=== PATIENT | male | born 1990 | race Caucasian/White ===

== ENCOUNTER 2019-01-08 14:13 | Emergency (ER) | payer OTHER, BC ==
--- NOTE | 2019-01-08 16:30 | ED Physician Documentation ---
PD HPI UPPER EXT INJURY - Stated complaint Stated Complaint: R THUMB LAC - Chief complaint Chief Complaint: Laceration - History obtained from History obtained from: Patient - History of Present Illness Location: Right, Finger (tip of thumb lacerated with table saw.) Type of injury: Laceration Where injury occurred: Work Timing - onset: Today Timing - details: Abrupt onset, Still present (bleeding if not having direct pressure.) Worsened by: Moving, Palpating Associated symptoms: No: Weakness, Numbness Review of Systems Neurologic: reports: Near syncope (he says he did get lightheaded after the injury, as he does not like the sight of blood. He does not feel there was a significant amount of blood loss.). denies: Focal weakness PD PAST MEDICAL HISTORY - Past Medical History Past Medical History: No - Allergies Allergies/Adverse Reactions: Allergies Allergy/AdvReac Type Severity Reaction Status Date / Time No Known Drug Allergies Allergy Verified 01/08/19 14:21 PD ED PE NORMAL - Vitals Vital signs reviewed: Yes - General General: Alert and oriented X 3, No acute distress, Well developed/nourished - Derm Derm: Normal color, Warm and dry - Extremities Extremities: Other (right thumb tip with horizontal laceration with irregular edges just volar to the end of the nailbed. No FB noted. Mild bleeding when dressing removed. It does not appear deep enough to be down to bone. No injury at the IP joint. Has good full flex and ext of the thumb. ) - Neuro Neuro: Alert and oriented X 3, No motor deficit, No sensory deficit Results - Vitals Vitals: Vital Signs - 24 hr 01/08/19 01/08/19 14:17 17:35 Temperature 36.9 C Heart Rate 60 60 Respiratory 18 16 Rate Blood Pressure 131/70 H 130/70 O2 Saturation 99 100 Oxygen O2 Source Room air Procedures - Laceration (location) right thumb Length in cm: 2.4 Wound type: Linear, Into subcut fat, Clean Neurovascular status: Sensory intact, Motor intact Anesthesia: Lidocaine 2% (digital block) Wound Preparation: Irrigated copiously NS, Wound explored, To the base, Wound edges modified. No: FB identified Skin layer closure: Nylon, Running, Size #-0 - enter number (4), Sutures - enter # (11) Other: Patient tolerated well, No complications, Dressing applied, Tetanus UTD Complexity: Simple PD MEDICAL DECISION MAKING - ED course Complexity details: considered differential, d/w patient Departure - Departure Disposition: 01 Home, Self Care Clinical Impression: Thumb laceration Qualifiers: Encounter type: initial encounter Damage to nail status: without damage Foreign body presence: without foreign body Laterality: right Qualified Code(s): S61.011A - Laceration without foreign body of right thumb without damage to nail, initial encounter Condition: Stable Record reviewed to determine appropriate education?: Yes Instructions: ED Laceration Hand Comments: It is okay to wash and shower. Clean off the wound twice a day with soap and water, or peroxide and water. Apply some antibiotic ointment to it to keep it moist. Also to watch for signs of infection such as purulence, redness or increasing pain. Return to your primary care or the ER at the specified time for suture removal. Suture removal approximately 10 days. Ibuprofen or naproxen 2-3 times a day and add Tylenol every 6 hours as needed for pains. Limited use of the right hand and thumb for 10 days until suture removal. Forms: Activity restrictions Discharge Date/Time: 01/08/19 17:35
[2019-01-08] MEDS ORDERED: LIDOCAINE 2% 10 ML MDV SUBQ STA (16:32)
[2019-01-08 17:36] VITALS: BP 130/70
== END 2019-01-08 17:35 | disposition home or self-care (01) ==
LOC: ED 14:13
DX: S61.011A Laceration without foreign body of right thumb without damage to nail, initial encounter (principal); W31.2XXA Contact with powered woodworking and forming machines, initial encounter; Y93.89 Activity, other specified; Y99.0 Civilian activity done for income or pay
CPT/HCPCS: 1040M; 12001; 99282